=== PATIENT | male | born 1955 | race African-American/Black ===

== ENCOUNTER → 2018-12-17 | Outpatient (CLI) | payer MEDICARE ==
--- NOTE | 2018-12-17 20:30 | Diagnostic Imaging Report ---
PROCEDURE: X-RAY MODIFIED BARIUM SWALLOW COMPARISON: None. INDICATION: Dysphagia Radiation Details: Fluoroscopy time: 1.8 minutes Cumulative dose: 11 mGy DISCUSSION: Fluoroscopic examination was performed in conjunction with speech pathology during swallowing a variety of thin and thick liquid consistencies. Provided images demonstrate laryngeal penetration and trace aspiration. CONCLUSION: Modified barium swallow demonstrating laryngeal penetration and trace aspiration. Please refer to the speech pathology report for further details. Signed by: Dr. Minna Carrillo MD on 12/17/2018 8:26 PM
== END ==
LOC: DX 11:18
PROVIDERS: ATTEND Internal Medicine Gastroenterology
DX: R13.10 Dysphagia, unspecified (principal)
CPT/HCPCS: 74230